=== PATIENT | male | born 1960 | race Caucasian/White ===

== ENCOUNTER 2017-12-03 19:42 | Inpatient (IN) | payer OTHER ==
[~2017-12-03] VITALS: Ht 182.9 cm; Wt 87.7 kg
[~2017-12-03 19:42] MED LIST: DIOVAN HCT 1601 EACH PO; DIOVAN80 MG PO; LORTAB 7.5-5001 EACH PO; diovan
[2017-12-03] MEDS ORDERED: SODIUM CHLORIDE 0.9% 1000ML 1,000 ML IV STA (20:14)
[2017-12-03] MEDS ORDERED: ONDANSETRON HCL INJ 2 MG/ML VIAL IV STA (20:14)
[2017-12-03] MEDS ORDERED: SODIUM CHLORIDE 0.9% 1000ML 1,000 ML ONE (20:24)
[2017-12-03 20:36] LABS: BASOPHILS % 0.2 % (0.0-1.0); HEMATOCRIT 40.3 % (38.2-49.6); HEMOGLOBIN 14.9 g/dL (14.0-18.0); LYMPHOCYTES # (AUTO) 1.4 (1.0-3.2); LYMPHOCYTES % 16.5 % (18.0-39.1); MEAN CORPUSCULAR HEMOGLOBIN 32.6 pg (28-32); MEAN CORPUSCULAR VOLUME 88.2 fL (81-99); MONOCYTES # (AUTO) 0.7 (0.2-0.8); MONOCYTES % 7.9 % (4.4-11.3); NEUTROPHILS # (AUTO) 6.2 (2.1-6.9); NEUTROPHILS % 75.2 % (38.7-80.0); PLATELET COUNT 94 x10e3/uL (140-360); RED BLOOD COUNT 4.57 x10e6/uL (4.3-5.7); RED CELL DISTRIBUTION WIDTH 12.2 % (11.7-14.4)
[2017-12-03 20:45] LABS: INR 1.05; PROTHROMBIN TIME 12.9 seconds (11.9-14.5)
[2017-12-03 20:55] LABS: ALBUMIN 3.6 g/dL (3.5-5.0); ALBUMIN/GLOBULIN RATIO 0.9 (0.8-2.0); ANION GAP 21.2 mmol/L (8-16); CREATININE, SERUM 6.29 mg/dL (0.72-1.25); POTASSIUM 3.2 mmol/L (3.5-5.1)
[2017-12-03 21:02] LABS: CREATINE KINASE MB 0.8 ng/mL (0-5.0)
--- NOTE | 2017-12-03 21:14 | Diagnostic Imaging Report ---
EXAM: CHEST SINGLE (PORTABLE), AP 1 view INDICATION: Dizziness, low blood pressure, syncope COMPARISON: None FINDINGS: LINES/TUBES: None LUNGS: No consolidations or edema. PLEURA: No effusions or pneumothorax. HEART AND MEDIASTINUM: Normal size and contour. BONES AND SOFT TISSUES: No acute findings. IMPRESSION: No acute thoracic abnormality. Signed by: Dr. Blanche Harry M.D. on 12/03/2017 9:11 PM
[2017-12-03] MEDS ORDERED: METRONIDAZOLE 500MG/NS 100ML 100 ML IV STA (21:22)
[2017-12-03] MEDS: CEFEPIME HCL 1 GM VIAL IV SCH (21:45)
--- NOTE | 2017-12-03 22:00 | Diagnostic Imaging Report ---
EXAM: CT ABDOMEN AND PELVIS without IV CONTRAST INDICATION: Dizziness, syncope, cough, vomiting, abdominal pain COMPARISON: None TECHNIQUE: The abdomen and pelvis were scanned using a multidetector helical scanner. Coronal and sagittal reformations were obtained. Routine protocol performed. IV Contrast: None Oral Contrast: None CTDIvol has been reviewed. It is below the limits set by the Radiation Protocol Committee (RPC). FINDINGS: LOWER THORAX: Mild bibasilar atelectasis. LIVER: Cyst measuring 1.6 cm and the left lobe of the liver. BILIARY: Cholecystectomy without ductal dilation. SPLEEN: No masses PANCREAS: No masses ADRENALS: No nodules RIGHT KIDNEY: Nonobstructing 4 mm stone in the inferior pole of the right kidney. No hydronephrosis. Mild perinephric fat stranding likely related to renal disease. LEFT KIDNEY: No nephroureterolithiasis or hydronephrosis. Mild perinephric fat stranding consistent with medical renal disease. GI TRACT: Surgical changes of right hemicolectomy. Liquid filled colon consistent with history of diarrhea. No bowel obstruction or evidence of inflammation. VESSELS: Minimal atherosclerotic changes of the abdominal aorta without aneurysm. PERITONEUM/RETROPERITONEUM: No free air or fluid LYMPH NODES: No lymphadenopathy REPRODUCTIVE ORGANS: Normal BLADDER: Normal SOFT TISSUES: Normal BONES: No suspicious bone lesions. IMPRESSION: Liquid filled small and large bowel without obstruction consistent with history of diarrhea. Nonobstructing 4 mm stone in the inferior pole of the right kidney. Signed by: Dr. Blanche Harry M.D. on 12/03/2017 9:56 PM
[2017-12-03] MEDS ORDERED: SODIUM BICARBONATE 8.4% SYRING 50 ML in SODIUM CHLORIDE 0.45% 1,000 ML IV SCH (23:00)
[2017-12-03] MEDS ORDERED: SODIUM BICARBONATE 8.4% SYRING 50 ML ONE (23:05)
[2017-12-03 23:14] LABS: CLARITY,URINE CLOUDY (CLEAR); COLOR,URINE YELLOW (YELLOW); LEUKOCYTE ESTERASE ,URINE NEGATIVE (NEGATIVE); NITRITE,URINE NEGATIVE (NEGATIVE)
[2017-12-03 23:15] LABS: BILIRUBIN,URINE 2+ (NEGATIVE); KETONES,URINE TRACE (NEGATIVE); PROTEIN,URINE DIPSTICK 1+ (NEGATIVE); URINE UROBILINOGEN 0.2 mg/dL (0.2 - 1)
[2017-12-03 23:26] LABS: AMORPHOUS SEDIMENT,URINE MODERATE (FEW); BACTERIA,URINE MANY /HPF; EPITHELIAL CELLS,URINE FEW /LPF; TRANSITIONAL EPI CELLS,URINE FEW
[2017-12-04] VITALS (7 sets, daily range): BP systolic 90–139; BP diastolic 54–71
[2017-12-04] MEDS ORDERED: SODIUM CHLORIDE 0.45% 1,000 ML ONE (00:10)
[2017-12-04] MEDS: OSELTAMIVIR PHOSPHATE 75 MG CAP PO SCH ×3 (00:25→16:53)
[2017-12-04] MEDS ORDERED: ONDANSETRON HCL INJ 2 MG/ML VIAL IV PRN (03:30)
--- OUTSIDE RECORDS SUMMARY | 2017-12-04 03:41 | XMS REPORT ---
Author Author [facility] Address Unknown Phone Unavailable Care Team Providers Care [employer] Name Role Phone ARNEL REAVES Unavailable Unavailable Problems This patient has no known problems. Allergies, Adverse Reactions, Alerts This patient has no known allergies or adverse reactions. Medications This patient has no known medications. Results Test Description Test Time Test Comments Text Results Atomic Results Result Comments CHEST SINGLE (PORTABLE) [place] [address] Patient Name: MELISSA AHUJA MR #: [id number] : 1960 Age/Sex: 57/M Req #: [id number] Adm Physician: Ordered by: ARNEL REAVES MD Report #: [id number] Location: ER Room/Bed: Procedure: [id number] DX/CHEST SINGLE (PORTABLE) Exam Date: 12/03/17 Exam Time: 2049 REPORT STATUS: Signed EXAM: CHEST SINGLE (PORTABLE), AP 1 view INDICATION: Dizziness, low blood pressure, syncope COMPARISON: None FINDINGS: LINES/TUBES: None LUNGS: No consolidations or edema. PLEURA: No effusions or pneumothorax. HEART AND MEDIASTINUM: Normal size and contour. BONES AND SOFT TISSUES: No acute findings. IMPRESSION: No acute thoracic abnormality. Signed by: Dr. Dylan Farmer M.D. on 12/03/2017 9:11 PM Dictated By: DYLAN FARMER MD 10 Transcribed By: BETSY on 12/03/172110 COPY TO: ARNEL REAVES MD CT ABDOMEN/PELVIS WO [place] [address] Patient Name: MELISSA AHUJA MR #: [id number] : 1960 Age/Sex: 57/M Req #: [id number] Adm Physician: Ordered by: ARNEL REAVES MD Report #: [id number] Location: ER Room/Bed: Procedure: [id number] CT/CT ABDOMEN/PELVIS WO Exam Date: 12/03/17 Exam Time: 2134 REPORT STATUS: Signed EXAM: CT ABDOMEN AND PELVIS without IV CONTRAST INDICATION: Dizziness, syncope, cough, vomiting, abdominal pain COMPARISON: None TECHNIQUE: The abdomen and pelvis were scanned using a multidetector helical scanner. Coronal and sagittal reformations were obtained. Routine protocol performed. IV Contrast: None Oral Contrast: None CTDIvol has been reviewed. It is below the limits set by the Radiation Protocol Committee (RPC). FINDINGS: LOWER THORAX: Mild bibasilar atelectasis. LIVER: Cyst measuring 1.6 cm and the left lobe of the liver. BILIARY: Cholecystectomy without ductal dilation. SPLEEN: No masses PANCREAS: No masses ADRENALS: No nodules RIGHT KIDNEY: Nonobstructing 4 mm stone in the inferior pole of the right kidney. No hydronephrosis. Mild perinephric fat stranding likely related to renal disease. LEFT KIDNEY: No nephroureterolithiasis or hydronephrosis. Mild perinephric fat stranding consistent with medical renal disease. GI TRACT : Surgical changes of right hemicolectomy. Liquid filled colon consistent with history of diarrhea. No bowel obstruction or evidence of inflammation. VESSELS: Minimal atherosclerotic changes of the abdominal aorta without aneurysm. PERITONEUM/RETROPERITONEUM: No free air or fluid LYMPH NODES: No lymphadenopathy REPRODUCTIVE ORGANS: Normal BLADDER: Normal SOFT TISSUES: Normal BONES: No suspicious bone lesions. IMPRESSION: Liquid filled small and large bowel without obstruction consistent with history of diarrhea. Nonobstructing 4 mm stone in the inferior pole of the right kidney. Signed by: Dr. Dylan Farmer M.D. on 12/03/2017 9:56 PM Dictated By: DYLAN FARMER MD 55 COPY TO: ARNEL REAVES MD
[2017-12-04] MEDS ORDERED: ACETAMINOPHEN 325 MG TAB PO PRN (04:00)
[2017-12-04] MEDS: CEFEPIME HCL 1 GM VIAL IV SCH (06:50)
[2017-12-04] MEDS: SODIUM CHLORIDE 0.9% 1000ML 1,000 ML IV SCH ×2 (06:50→10:24)
[2017-12-04] MEDS ORDERED: OSELTAMIVIR PHOSPHATE 75 MG CAP PO SCH (09:00)
[2017-12-04 11:01] LABS: BASOPHILS % 0.2 % (0.0-1.0); EOSINOPHILS % 0.2 % (0.0-6.0); HEMATOCRIT 31.5 % (38.2-49.6); HEMOGLOBIN 11.6 g/dL (14.0-18.0); LYMPHOCYTES # (AUTO) 0.9 (1.0-3.2); LYMPHOCYTES % 15.1 % (18.0-39.1); MEAN CORPUSCULAR HEMOGLOBIN 32.5 pg (28-32); MEAN CORPUSCULAR HGB CONC 36.8 g/dL (31-35); MEAN CORPUSCULAR VOLUME 88.2 fL (81-99); MONOCYTES # (AUTO) 0.6 (0.2-0.8); MONOCYTES % 8.8 % (4.4-11.3); NEUTROPHILS # (AUTO) 4.7 (2.1-6.9); NEUTROPHILS % 75.4 % (38.7-80.0); PLATELET COUNT 68 x10e3/uL (140-360); RED BLOOD COUNT 3.57 x10e6/uL (4.3-5.7); RED CELL DISTRIBUTION WIDTH 12.3 % (11.7-14.4)
[2017-12-04 11:18] LABS: ANION GAP 11.8 mmol/L (8-16); CALCIUM 8.1 mg/dL (8.4-10.2); CREATININE, SERUM 3.01 mg/dL (0.72-1.25); MAGNESIUM 1.6 MG/DL (1.3-2.1)
[2017-12-04 11:29] LABS: POTASSIUM 2.8 mmol/L (3.5-5.1)
[2017-12-04 11:38] LABS: CREATINE KINASE MB 0.8 ng/mL (0-5.0)
[2017-12-04] MEDS ORDERED: POTASSIUM CHLORIDE 20 MEQ TAB CR PO SCH (11:53)
[2017-12-04] MEDS ORDERED: POTASSIUM CHLORIDE 20MEQ/100ML 200 ML IV SCH (12:00)
[2017-12-04] MEDS: KCL 20MEQ/.9 SOD CHL 1,000 ML IV SCH ×2 (16:53→22:30)
[2017-12-04] MEDS: OYST-CAL-D 500MG TABLET PO SCH (16:53)
[2017-12-04] MEDS: FAMOTIDINE 20 MG TAB PO SCH (16:53)
[2017-12-04] MEDS: GUAIFENESIN 600 MG TAB PO SCH (17:40)
[2017-12-04 18:38] LABS: CREATINE KINASE MB 0.6 ng/mL (0-5.0)
[2017-12-05 00:22] VITALS: BP 90/56
[2017-12-05 04:31] VITALS: BP 104/74
[2017-12-05] MEDS: KCL 20MEQ/.9 SOD CHL 1,000 ML IV SCH ×2 (05:45→17:23)
[2017-12-05] MEDS: GUAIFENESIN 600 MG TAB PO SCH ×4 (05:46→17:23)
[2017-12-05 06:33] LABS: BASOPHILS % 0.2 % (0.0-1.0); EOSINOPHILS % 0.6 % (0.0-6.0); HEMATOCRIT 31.5 % (38.2-49.6); HEMOGLOBIN 11.4 g/dL (14.0-18.0); LYMPHOCYTES # (AUTO) 1.1 (1.0-3.2); LYMPHOCYTES % 22.8 % (18.0-39.1); MEAN CORPUSCULAR HEMOGLOBIN 32.5 pg (28-32); MEAN CORPUSCULAR HGB CONC 36.2 g/dL (31-35); MEAN CORPUSCULAR VOLUME 89.7 fL (81-99); MONOCYTES # (AUTO) 0.5 (0.2-0.8); MONOCYTES % 10.8 % (4.4-11.3); NEUTROPHILS # (AUTO) 3.2 (2.1-6.9); NEUTROPHILS % 65.2 % (38.7-80.0); PLATELET COUNT 64 x10e3/uL (140-360); RED BLOOD COUNT 3.51 x10e6/uL (4.3-5.7); RED CELL DISTRIBUTION WIDTH 12.5 % (11.7-14.4)
[2017-12-05 06:57] LABS: ANION GAP 9.8 mmol/L (8-16); CALCIUM 8.2 mg/dL (8.4-10.2); CREATININE, SERUM 1.33 mg/dL (0.72-1.25); POTASSIUM 3.8 mmol/L (3.5-5.1)
[2017-12-05 08:00] VITALS: BP 106/58
[2017-12-05] MEDS: OYST-CAL-D 500MG TABLET PO SCH ×2 (08:05→16:02)
[2017-12-05] MEDS: ENOXAPARIN SOD INJ 40 MG/0.4 ML SYR SC SCH (08:05)
[2017-12-05] MEDS: OSELTAMIVIR PHOSPHATE 75 MG CAP PO SCH ×2 (08:05→16:02)
[2017-12-05] MEDS: FAMOTIDINE 20 MG TAB PO SCH ×2 (08:05→16:02)
[2017-12-05 11:00] LABS: BAND NEUTROPHILS % (MANUAL) 2 %; LYMPHOCYTES % (MANUAL) 25 % (19-48); MONOCYTES % (MANUAL) 5 % (3.4-9.0); NEUTROPHILS % (MANUAL) 68 % (40-74); PLATELET MORPHOLOGY COMMENT NORMAL; RBC MORPHOLOGY COMMENT NORMAL
[2017-12-05 11:01] LABS: PLATELET ESTIMATE SLIGHTLY DECREASED
[2017-12-05 12:00] VITALS: BP 104/63
[2017-12-05 16:00] VITALS: BP 107/70
[2017-12-06] MEDS: GUAIFENESIN 600 MG TAB PO SCH ×3 (05:26→12:00)
[2017-12-06 06:16] LABS: BASOPHILS % 0.3 % (0.0-1.0); EOSINOPHILS # (AUTO) 0.2 (0.0-0.4); EOSINOPHILS % 4.3 % (0.0-6.0); HEMATOCRIT 31.4 % (38.2-49.6); HEMOGLOBIN 10.8 g/dL (14.0-18.0); LYMPHOCYTES # (AUTO) 1.5 (1.0-3.2); LYMPHOCYTES % 40.8 % (18.0-39.1); MEAN CORPUSCULAR HEMOGLOBIN 31.4 pg (28-32); MEAN CORPUSCULAR HGB CONC 34.4 g/dL (31-35); MEAN CORPUSCULAR VOLUME 91.3 fL (81-99); MONOCYTES # (AUTO) 0.4 (0.2-0.8); MONOCYTES % 10.5 % (4.4-11.3); NEUTROPHILS # (AUTO) 1.6 (2.1-6.9); NEUTROPHILS % 43.6 % (38.7-80.0); PLATELET COUNT 71 x10e3/uL (140-360); RED BLOOD COUNT 3.44 x10e6/uL (4.3-5.7); RED CELL DISTRIBUTION WIDTH 12.5 % (11.7-14.4)
[2017-12-06 07:02] LABS: ANION GAP 8.1 mmol/L (8-16); BLOOD UREA NITROGEN 21 mg/dL (7-26); BUN/CREATININE RATIO 20 (6-25); CALCIUM 8.1 mg/dL (8.4-10.2); CARBON DIOXIDE 24 mmol/L (22-29); CHLORIDE 109 mmol/L (98-107); CREATININE, SERUM 1.06 mg/dL (0.72-1.25); EST GLOMERULAR FILTRATION RATE > 60 ML/MIN (60-); GLUCOSE 90 mg/dL (74-118); POTASSIUM 4.1 mmol/L (3.5-5.1); SODIUM 137 mmol/L (136-145)
[2017-12-06] MEDS: FAMOTIDINE 20 MG TAB PO SCH (07:30)
[2017-12-06 08:00] VITALS: BP 145/84
[2017-12-06 08:53] LABS: ANISOCYTOSIS SLIGHT; EOSINOPHILS % (MANUAL) 4 % (0-7); HYPOCHROMASIA SLIGHT; LYMPHOCYTES % (MANUAL) 35 % (19-48); MONOCYTES % (MANUAL) 11 % (3.4-9.0); NEUTROPHILS % (MANUAL) 42 % (40-74)
[2017-12-06 08:54] LABS: PLATELET ESTIMATE SLIGHTLY DECREASED; PLATELET MORPHOLOGY COMMENT NORMAL; RBC MORPHOLOGY COMMENT NORMAL
[2017-12-06] MEDS: ENOXAPARIN SOD INJ 40 MG/0.4 ML SYR SC SCH (09:00)
[2017-12-06] MEDS: OYST-CAL-D 500MG TABLET PO SCH (09:00)
[2017-12-06] MEDS: OSELTAMIVIR PHOSPHATE 75 MG CAP PO SCH ×2 (09:00→14:16)
[2017-12-06] MEDS: KCL 20MEQ/.9 SOD CHL 1,000 ML IV SCH (11:51)
[2017-12-06] MEDS ORDERED: MUCINEX600 MG PO (11:59)
[2017-12-06] MEDS ORDERED: Calcium Carbonate PO (11:59)
[2017-12-06] MEDS ORDERED: TAMIFLU75 MG PO (11:59)
[2017-12-06 12:00] VITALS: BP 145/92
--- NOTE | 2017-12-06 23:55 | Discharge Summary ---
ADMISSION DIAGNOSES: 1. Flu B positive. 2. Acute kidney injury. 3. Hypotension. 4. Hypokalemia. 5. Hypocalcemia. 6. Hyponatremia. 7. Diarrhea. DISCHARGE DIAGNOSES: 1. Flu B positive. 2. Acute kidney injury. 3. Hypotension. 4. Hypokalemia. 5. Hypocalcemia. 6. Hyponatremia. 7. Diarrhea. 8. Ruled out Clostridium difficile. HISTORY: Patient's only medical history is hypertension and surgical history is right hemicolectomy. HOSPITAL COURSE: A 57-year-old male complains of dry cough, aches and pains, diarrhea, and trouble urinating that began on Wednesday and got worse over the last few days. He denies fever, but says he vomited x1 on . On admission, patient was tested for flu and came back positive, so he was started on Tamiflu and Mucinex. His creatinine was 6 on admission with no known history of renal issues, patient was started on IV fluids. Gradually, the creatinine came down to normal at day of discharge. Hypotension resolved. He did not require any of his home blood pressure medications during hospital stay. Hypokalemia and hyponatremia both resolved. Patient complained of diarrhea on admission, but that resolved as well, and the C. diff came back negative. Chest x-ray on admission showed no acute thoracic abnormality. CT of the abdomen showed liquid-filled small and large bowel without obstruction consistent with history of diarrhea, nonobstructing 4-mm stone in the inferior pole of the right kidney. Blood cultures were negative. Urine culture was negative. Patient had a Lopez on admission due to urinary retention, but it was taken out on the day of admission and he had no trouble urinating. On day of discharge, WBC was 3.7, hemoglobin of 10.8, hematocrit of 31.4. Vital signs stable. Patient remained afebrile. Patient was sent home on 2 more days of Tamiflu, to complete 5-day Os-Jefry D and Mucinex. He was not resumed on his home medication of valsartan and hydrochlorothiazide mix due to his kidney injury and the fact that he has been off for 5 days without any hypertension. He will follow up with primary care and cardiology in 1 to 2 weeks. Dictated by Marah Moreno, ESTHELA VIVIAN SINGH MD Job#: [id number]
== END 2017-12-06 14:15 | disposition home or self-care (01) | DRG 194 ==
LOC: ER 19:42 → ERHOLD 12-04 03:36 → MED/SURG2 12-04 03:41
PROVIDERS: ADMIT Internal Medicine; ATTEND Internal Medicine
DX: J10.1 Influenza due to other identified influenza virus with other respiratory manifestations (principal); N17.9 Acute kidney failure, unspecified; I95.9 Hypotension, unspecified; E87.1 Hypo-osmolality and hyponatremia; E83.51 Hypocalcemia; N20.0 Calculus of kidney; J09.X2 Influenza due to identified novel influenza A virus with other respiratory manifestations; E86.0 Dehydration; E87.6 Hypokalemia; R19.7 Diarrhea, unspecified; J10.2 Influenza due to other identified influenza virus with gastrointestinal manifestations
CPT/HCPCS: 36415; 51700; 71045; 74176; 80048; 80053; 81001; 82150; 82550; 82553; 83605; 83690; 83735; 83880; 84484; 85025; 85610; 85730; 87040; 87045; 87086; 87400; 87493; 93005; 99284; J0692; J1650; J2405; J3480; J7030

== ENCOUNTER → 2018-09-02 | Day surgery (SDC) | payer OTHER ==
[~2018-09-02] MED LIST changes: +Calcium Carbonate PO; +DIOVAN PO; +FENTANYL CITRATE/PF 100MCG/2 ML INJ ONE; +GLUCAGON FOR INJ 1 MG VIAL ONE; +HYOSCYAMINE SULFATE 0.5 MG/ML INJ ONE; +MIDAZOLAM HCL 2 MG/2 ML VIAL ONE; +MUCINEX600 MG PO; +MULTIVITAMINS1 EAC6 PO; +PROPOFOL IV EMULSION 10 MG/ML 50 ML VIAL ONE; +TAMIFLU75 MG PO
[2018-09-02 10:15] VITALS: BP 111/81
--- NOTE | 2018-09-02 10:26 | Operative Report ---
DATE OF PROCEDURE: September 02, 2018 REFERRING PHYSICIAN: Dr. Fernando Garíca. PROCEDURE PERFORMED: Colonoscopy and polypectomy. INDICATIONS FOR COLONOSCOPY: Surveillance colonoscopy, personal history of colon polyps. MEDICATION: Patient was done under MAC. Please see anesthesiologist's note. PROCEDURE: With patient in the left lateral decubitus position, a flexible fiberoptic Olympus colonoscope was inserted into the rectum with ease and advanced all the way to the ileocolic anastomosis. The ileocolic anastomosis appeared intact. The scope was then withdrawn slowly. Mucosa overlying the ascending and transverse appeared to be within normal limits. One polyp was hot biopsied from the descending colon. Some diverticular disease was noted in the sigmoid colon. The polypectomy site in the descending colon was hemoclipped. Two polyps were hot biopsied from the sigmoid colon and 6 polyps were hot biopsied from the rectum. The scope was then retroflexed into the distal rectum and small internal hemorrhoids were noted, none of which was actively bleeding. The scope was then straightened out. It was subsequently withdrawn. Patient tolerated the procedure well. IMPRESSIONS 1. Ileocolic anastomosis intact. 2. Descending colon polyp hot biopsied, site hemoclipped. 3. Sigmoid colon polyps x2, hot biopsied. 4. Diverticulosis. 5. Rectal polyps x6, hot biopsied. 6. Internal hemorrhoids, none actively bleeding. PLAN: Follow up histology. Initiate high-fiber, low-fat diet. Initiate high-fiber supplement. Patient might benefit from a followup colonoscopy in 3 years. A total of 9 polyps were removed. Job#: [id number] TA cc:FERNANDO GARCÍA M.D.,
== END | disposition home or self-care (01) ==
LOC: OR 06:41
PROVIDERS: ATTEND Internal Medicine Gastroenterology
DX: Z09 Encounter for follow-up examination after completed treatment for conditions other than malignant neoplasm (principal); K63.5 Polyp of colon; K62.1 Rectal polyp; Z98.0 Intestinal bypass and anastomosis status; K57.30 Diverticulosis of large intestine without perforation or abscess without bleeding; K64.8 Other hemorrhoids; I10 Essential (primary) hypertension; Z01.810 Encounter for preprocedural cardiovascular examination; Z68.26 Body mass index [BMI] 26.0-26.9, adult; Z87.891 Personal history of nicotine dependence
CPT/HCPCS: 45384; 93005; J1610; J1980; J2250; 45378

== ENCOUNTER 2022-01-16 10:33 | Inpatient (IN) | payer BC, OTHER ==
[~2022-01-16] VITALS: Ht 182.9 cm; Wt 93.0 kg
[~2022-01-16 10:33] MED LIST changes: -FENTANYL CITRATE/PF 100MCG/2 ML INJ ONE; -GLUCAGON FOR INJ 1 MG VIAL ONE; -HYOSCYAMINE SULFATE 0.5 MG/ML INJ ONE; -MIDAZOLAM HCL 2 MG/2 ML VIAL ONE; -PROPOFOL IV EMULSION 10 MG/ML 50 ML VIAL ONE; +SODIUM CHLORIDE FLUSH 10 ML SYR IV PRN
[2022-01-16] MEDS: SODIUM CHLORIDE 0.9% 1000ML 1,000 ML IV SCH ×4 (11:25→17:23)
[2022-01-16 11:42] LABS: BASOPHILS % 0.3 % (0.0-1.0); EOSINOPHILS # (AUTO) 0.1 (0.0-0.4); EOSINOPHILS % 1.5 % (0.0-6.0); HEMATOCRIT 47.3 % (38.2-49.6); HEMOGLOBIN 15.8 g/dL (14.0-18.0); LYMPHOCYTES # (AUTO) 1.6 (1.0-3.2); LYMPHOCYTES % 21.8 % (18.0-39.1); MEAN CORPUSCULAR HGB CONC 33.4 g/dL (31-35); MEAN CORPUSCULAR VOLUME 95.9 fL (81-99); MONOCYTES # (AUTO) 0.7 (0.2-0.8); MONOCYTES % 10.4 % (4.4-11.3); NEUTROPHILS # (AUTO) 4.7 (2.1-6.9); NEUTROPHILS % 65.9 % (38.7-80.0); PLATELET COUNT 187 x10e3/uL (140-360); RED BLOOD COUNT 4.93 x10e6/uL (4.3-5.7); RED CELL DISTRIBUTION WIDTH 12.5 % (11.7-14.4)
[2022-01-16 11:55] LABS: INR 0.91; PROTHROMBIN TIME 13.1 seconds (11.9-14.5)
[2022-01-16 11:56] LABS: PARTIAL THROMBOPLASTIN TIME 28.8 seconds (23.8-35.5)
[2022-01-16 12:03] LABS: CALCIUM 9.8 mg/dL (8.4-10.2); CREATININE, SERUM 1.45 mg/dL (0.72-1.25)
[2022-01-16] MEDS ORDERED: IOPAMIDOL 370 MG/ML 100 ML INFUS..BTL INJ ONE (12:31)
[2022-01-16 13:30] LABS: CLARITY,URINE CLEAR (CLEAR); COLOR,URINE YELLOW (YELLOW); KETONES,URINE NEGATIVE (NEGATIVE); LEUKOCYTE ESTERASE ,URINE NEGATIVE (NEGATIVE); NITRITE,URINE NEGATIVE (NEGATIVE); PROTEIN,URINE DIPSTICK NEGATIVE (NEGATIVE); URINE UROBILINOGEN 0.2 mg/dL (0.2 - 1)
[2022-01-16 13:36] LABS: BACTERIA,URINE RARE /HPF; EPITHELIAL CELLS,URINE RARE /LPF; RBC,URINE 0-5 /HPF (0-5); WBC,URINE (MAN) 0-5 /HPF (0-5)
[2022-01-16] MEDS ORDERED: POTASSIUM GLUC500 GM PO (14:42)
[2022-01-16] MEDS ORDERED: VALSARTAN-HCTZ1 EAC1 PO (14:42)
[2022-01-16] MEDS ORDERED: FISH OIL 1,001000 M1 PO (14:42)
[2022-01-16] MEDS ORDERED: BIOTIN1000 MCG PO (14:42)
[2022-01-16] MEDS ORDERED: CALCIUM MAGNES1 EAC2 PEG (14:42)
[2022-01-16] MEDS ORDERED: VITAMIN C1000 MG PO (14:42)
[2022-01-16] MEDS ORDERED: SAW PALMETTO450 MG PEG (14:42)
[2022-01-16] MEDS ORDERED: Morphine 2mg Syringe 2 MG/ML SYR IV PRN (14:45)
[2022-01-16] MEDS ORDERED: ONDANSETRON HCL INJ 2MG/ML 2ML 2 MG/ML VIAL IV PRN (14:45)
[2022-01-16 16:45] VITALS: BP 158/65
[2022-01-16 16:55] VITALS: BP 158/65
[2022-01-16 20:00] VITALS: BP 158/65
[2022-01-16 20:19] VITALS: BP 113/83
[2022-01-16] MEDS ORDERED: HYDRALAZINE HCL 20 MG/ML VIAL IV PRN (22:45)
[2022-01-17] VITALS (8 sets, daily range): BP systolic 102–133; BP diastolic 74–84
[2022-01-17] MEDS: SODIUM CHLORIDE 0.9% 1000ML 1,000 ML IV SCH ×5 (02:00→21:24)
[2022-01-17 04:58] LABS: BASOPHILS % 0.3 % (0.0-1.0); EOSINOPHILS # (AUTO) 0.1 (0.0-0.4); EOSINOPHILS % 1.7 % (0.0-6.0); HEMATOCRIT 42.5 % (38.2-49.6); HEMOGLOBIN 14.1 g/dL (14.0-18.0); LYMPHOCYTES # (AUTO) 1.7 (1.0-3.2); LYMPHOCYTES % 26.8 % (18.0-39.1); MEAN CORPUSCULAR HEMOGLOBIN 32.2 pg (28-32); MEAN CORPUSCULAR HGB CONC 33.2 g/dL (31-35); MONOCYTES # (AUTO) 0.7 (0.2-0.8); MONOCYTES % 11.4 % (4.4-11.3); NEUTROPHILS # (AUTO) 3.8 (2.1-6.9); NEUTROPHILS % 59.5 % (38.7-80.0); PLATELET COUNT 158 x10e3/uL (140-360); RED BLOOD COUNT 4.38 x10e6/uL (4.3-5.7); RED CELL DISTRIBUTION WIDTH 12.6 % (11.7-14.4)
[2022-01-17 05:18] LABS: ALBUMIN 3.4 g/dL (3.5-5.0); ANION GAP 11.9 mmol/L (8-16); CALCIUM 8.2 mg/dL (8.4-10.2); CREATININE, SERUM 1.18 mg/dL (0.72-1.25); POTASSIUM 3.9 mmol/L (3.5-5.1)
[2022-01-17 05:42] LABS: CHOL/HDL RATIO 4.3 (3.9-4.7); MAGNESIUM 1.9 MG/DL (1.3-2.1); PHOSPHORUS 2.6 MG/DL (2.3-4.7)
[2022-01-17 06:02] LABS: THYROID STIMULATING HORMONE 1.121 uIU/mL (0.350-4.940)
[2022-01-18] VITALS (7 sets, daily range): BP systolic 121–147; BP diastolic 78–93
[2022-01-18] MEDS: SODIUM CHLORIDE 0.9% 1000ML 1,000 ML IV SCH ×3 (06:16→16:51)
[2022-01-19] VITALS: BP 144/89
[2022-01-19 04:00] VITALS: BP 146/93
[2022-01-19] MEDS: SODIUM CHLORIDE 0.9% 1000ML 1,000 ML IV SCH ×2 (04:07→14:00)
[2022-01-19 05:37] LABS: BASOPHILS % 0.4 % (0.0-1.0); EOSINOPHILS # (AUTO) 0.1 (0.0-0.4); EOSINOPHILS % 1.7 % (0.0-6.0); HEMATOCRIT 35.9 % (38.2-49.6); HEMOGLOBIN 12.1 g/dL (14.0-18.0); LYMPHOCYTES # (AUTO) 0.9 (1.0-3.2); LYMPHOCYTES % 17.5 % (18.0-39.1); MEAN CORPUSCULAR HEMOGLOBIN 32.1 pg (28-32); MEAN CORPUSCULAR HGB CONC 33.7 g/dL (31-35); MEAN CORPUSCULAR VOLUME 95.2 fL (81-99); MONOCYTES # (AUTO) 0.6 (0.2-0.8); MONOCYTES % 10.3 % (4.4-11.3); NEUTROPHILS # (AUTO) 3.8 (2.1-6.9); NEUTROPHILS % 69.9 % (38.7-80.0); PLATELET COUNT 141 x10e3/uL (140-360); RED BLOOD COUNT 3.77 x10e6/uL (4.3-5.7); RED CELL DISTRIBUTION WIDTH 12.1 % (11.7-14.4)
[2022-01-19 05:58] LABS: ALBUMIN 3.2 g/dL (3.5-5.0); ALBUMIN/GLOBULIN RATIO 1.1 (0.8-2.0); ANION GAP 11.4 mmol/L (8-16); CALCIUM 7.9 mg/dL (8.4-10.2); CREATININE, SERUM 1.03 mg/dL (0.72-1.25); MAGNESIUM 1.8 MG/DL (1.3-2.1); PHOSPHORUS 1.8 MG/DL (2.3-4.7); POTASSIUM 3.4 mmol/L (3.5-5.1)
[2022-01-19] MEDS ORDERED: POTASSIUM PHOSPHATE 15 MM in SODIUM CHLORIDE 0.9% 250ML 250 ML IV ONE (07:15)
[2022-01-19] MEDS ORDERED: POTASSIUM CHLORIDE 20 MEQ TAB CR PO ONE (07:15)
[2022-01-19 07:40] VITALS: BP 141/88
[2022-01-19 08:49] VITALS: BP 141/88
[2022-01-19] MEDS ORDERED: [UNRECOGNIZED DRUG - OTHER] PO SCH (11:30)
[2022-01-19] MEDS ORDERED: HYDROCHLOROTHIAZIDE PO SCH (11:30)
[2022-01-19] MEDS ORDERED: VALSARTAN PO SCH (11:30)
[2022-01-19 11:53] VITALS: BP 146/100
[2022-01-19] MEDS ORDERED: HYDROCHLOROTHIAZIDE 25 MG TAB PO SCH (12:30)
[2022-01-19] MEDS ORDERED: VALSARTAN 80 MG TAB PO SCH (12:30)
[2022-01-19 15:30] VITALS: BP 141/92
[2022-01-20] MEDS ORDERED: [UNRECOGNIZED DRUG - OTHER] PO SCH (09:00)
[2022-01-20] MEDS ORDERED: HYDROCHLOROTHIAZIDE PO SCH (09:00)
[2022-01-20] MEDS ORDERED: VALSARTAN PO SCH (09:00)
== END 2022-01-19 16:28 | disposition home or self-care (01) | DRG 390 ==
LOC: ER 10:56 → ERHOLD 14:37 → MED/SURG 16:33
PROVIDERS: ADMIT Internal Medicine; ATTEND Internal Medicine
DX: K56.600 Partial intestinal obstruction, unspecified as to cause (principal); I10 Essential (primary) hypertension; Z90.49 Acquired absence of other specified parts of digestive tract; Z87.891 Personal history of nicotine dependence; Z82.3 Family history of stroke; Z20.822 Contact with and (suspected) exposure to COVID-19; E86.0 Dehydration; R74.01 Elevation of levels of liver transaminase levels; E87.6 Hypokalemia; E83.39 Other disorders of phosphorus metabolism
CPT/HCPCS: 36415; 71045; 74019; 74177; 80053; 80061; 81001; 83036; 83690; 83735; 84100; 84443; 84484; 85025; 85610; 85730; 93005; 94799; 99284; J7030; J7050; Q9967; U0002

== ENCOUNTER → 2022-02-06 | Day surgery (SDC) | payer BC ==
[~2022-02-06] MED LIST changes: +BIOTIN1000 MCG PO; +CALCIUM MAGNES1 EAC2 PEG; +FENTANYL CITRATE/PF 100MCG/2 ML INJ ONE; +FISH OIL 1,001000 M1 PO; +HYOSCYAMINE SULFATE 0.5 MG/ML INJ ONE; +LIDOCAINE HCL 2% LOCAL INJ 5 ML SDV VIAL INJ ONE; +MIDAZOLAM HCL 2 MG/2 ML VIAL ONE; +POTASSIUM GLUC500 GM PO; +PROPOFOL IV EMULSION 10 MG/ML 20 ML VIAL ONE; +SAW PALMETTO450 MG PEG; -SODIUM CHLORIDE FLUSH 10 ML SYR IV PRN; +VALSARTAN-HCTZ1 EAC1 PO; +VITAMIN C1000 MG PO
[2022-02-06 12:15] VITALS: BP 114/89
[2022-02-06 14:45] LABS: WBC,FECAL (FECAL LACTOFERRIN) POSITIVE (NEGATIVE)
[2022-02-06 16:16] LABS: C DIFFICILE TOXIN A&B AMP PROB NEGATIVE (NEGATIVE)
== END | disposition home or self-care (01) ==
LOC: OR 07:25
PROVIDERS: ATTEND Internal Medicine Gastroenterology
DX: Z09 Encounter for follow-up examination after completed treatment for conditions other than malignant neoplasm (principal); K63.5 Polyp of colon; K52.9 Noninfective gastroenteritis and colitis, unspecified; Z98.0 Intestinal bypass and anastomosis status; K57.30 Diverticulosis of large intestine without perforation or abscess without bleeding; K64.8 Other hemorrhoids; I10 Essential (primary) hypertension; R00.1 Bradycardia, unspecified; Z01.810 Encounter for preprocedural cardiovascular examination; Z01.812 Encounter for preprocedural laboratory examination; Z20.822 Contact with and (suspected) exposure to COVID-19; Z79.899 Other long term (current) drug therapy; Z68.28 Body mass index [BMI] 28.0-28.9, adult; Z87.891 Personal history of nicotine dependence; Z86.16 Personal history of COVID-19
CPT/HCPCS: 45380; 83630; 83993; 87045; 87177; 87328; 87493; 93005; J1980; J2001; J2250; J2704; J3010; U0002; 45378